=== PATIENT | male | born 1945 | race Caucasian/White ===

== ENCOUNTER 2020-02-05 09:20 | Day surgery (SDC) | payer OTHER, MEDICARE ==
[~2020-02-05] VITALS: Ht 190.5 cm; Wt 95.8 kg
[~2020-02-05 09:20] MED LIST: ATOR40TA PO; Aspir 8181 MG PO; CLOP75 PO; MAGNESIUM OXID500 MG PO; METF500 PO; METO25 PO; OMEP20ER PO; Prinivil10 MG PO
[2020-02-05] MEDS ORDERED: POTASSIUM GLUCO99 M1 (10:06)
[2020-02-05] MEDS ORDERED: FISH OIL-VIT D1 EACH (10:07)
--- NOTE | 2020-02-05 10:32 | NUR ---
02/05/20 1032 Soraya De La Cruz FIRST IV ATTEMPT IN RIGHT HAND, SECOND ATTEMPT IN LEFT HAND, BOTH UNSUCCESSFUL, BY ORSC.HS. THIRD ATTEMPT IN RIGHT AC WAS SUCCESSFUL AND TOLERATED WELL, BY ORSC.RCL.
== END 2020-02-05 11:37 | disposition home or self-care (01) ==
LOC: ORSCSDS 09:20
PROVIDERS: Internal Medicine Gastroenterology
PROC: 0DB78ZX Excision of Stomach, Pylorus, Via Natural or Artificial Opening Endoscopic, Diagnostic (ICD-10-PCS; principal; 2020-02-05 11:15)
PROC: 0W3P8ZZ Control Bleeding in Gastrointestinal Tract, Via Natural or Artificial Opening Endoscopic (ICD-10-PCS; principal; 2020-02-05 11:15)
DX: K70.30 Alcoholic cirrhosis of liver without ascites (principal); D50.9 Iron deficiency anemia, unspecified; K29.70 Gastritis, unspecified, without bleeding; K76.6 Portal hypertension; K31.89 Other diseases of stomach and duodenum; I99.8 Other disorder of circulatory system; D69.6 Thrombocytopenia, unspecified; Z87.891 Personal history of nicotine dependence; G47.33 Obstructive sleep apnea (adult) (pediatric); E78.5 Hyperlipidemia, unspecified; R73.9 Hyperglycemia, unspecified; Z79.82 Long term (current) use of aspirin; Z79.84 Long term (current) use of oral hypoglycemic drugs; I10 Essential (primary) hypertension; I25.10 Atherosclerotic heart disease of native coronary artery without angina pectoris; E11.9 Type 2 diabetes mellitus without complications; Z79.899 Other long term (current) drug therapy
CPT/HCPCS: 82947; 88305; 88342; J2704; J7120